=== PATIENT | male | born 2000 | race Caucasian/White ===

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

== ENCOUNTER 2022-04-02 07:10 | Emergency (ER) | payer OTHER, SELFPAY ==
--- NOTE | ~2022-04-02 | XR_ITS ---
EXAMINATION: XR ABDOMEN KUB CLINICAL INDICATION: Abdominal pain COMPARISON: 10/30/2021 TECHNIQUE: 2 views of the abdomen. FINDINGS: The bowel gas pattern is normal with no evidence of ileus or obstruction. No unusual soft tissue calcifications are noted. The bones are unremarkable. XR/XR KUB IMPRESSION: No evidence of urolithiasis.
[2022-04-02 07:21] VITALS: BP 119/71; PULSE 63; RESP 17; TEMP 36.6; O2SAT 100; BMI 22.8
--- NOTE | 2022-04-02 07:31 | PC.NURSE ---
pt is a/o x 4 no sob/jimena noted speaks in full sentences. lungs - cta. heart sound - regular. abd soft and non-tender, bs + x 4 quads. no edema noted. pt/girlfriend aware of plan of care.
[2022-04-02 07:53] LABS: MANUAL DIFF FLAG NO
[2022-04-02 07:59] LABS: Appearance Urine Cloudy; Color Urine Yellow; Glucose Urine UA Negative (Negative); Leukocyte Esterase Urine Negative (Negative); Nitrite Urine Negative (Negative); PH 6.5 (5.0-9.0); Specific Gravity - Urine 1.025 (1.005-1.025); Urine Blood Negative (Negative); Urine Ketones Negative (Negative); Urine Protein Negative (Neg-Trace)
--- NOTE | 2022-04-02 08:00 | ED_ITS ---
HPI - Abdominal Pain General Chief Complaint: Abdominal Pain Stated Complaint: Stomach Pain Time Seen by Provider: 04/02/22 08:00 Source: patient Mode of arrival: ambulatory Limitations: language barrier History of Present Illness HPI narrative: 21-year-old male who denies any significant past medical history presenting to the ED with his significant other at bedside they are both Persian speaking with complaints of abdominal pressure and fullness and need to defecate x 4-5 hours with associated nausea. He states he last vomited a few hours ago and has not had any PO intake since. He states a normal bowel pattern of 3 times and day, however; the last 2 days he states he has been having difficulties moving his bowels. He denies any changes in his diet. He denies any fevers, chills, dizziness, headaches, chest pain or shortness of breath, dyspnea on exertion, orthopnea, palpitations, paresthesias, hematuria, diarrhea, constipation, black or bloody stools, recent travels, or any other symptoms complaints or concerns at this time. He denies any weight gain or weight loss. ? MD elicited complaint: abdominal pain Pertinent past history: kidney stones Pain Consistency: constant Location: LUQ, RUQ, RLQ and LLQ Severity: mild Pain scale (0-10): 4 Quality: fullness and other (pressure) Radiation: none Migration to: no migration Exacerbating factors: nothing Relieving factors: bowel movement Associated symptoms: nausea Related Data Previous Rx's Medication Instructions Recorded loperamide 2 mg tablet 2 mg PO Q4H PRN loose stool #10 05/12/21 tabs ondansetron HCl 4 mg tablet 4 mg PO Q6H PRN nausea and 05/12/21 (Zofran) vomiting #10 tabs doxycycline hyclate 100 mg tablet 100 mg PO Q12H 10 days #20 tabs 10/28/21 cyclobenzaprine 10 mg tablet 10 mg PO Q8H PRN Muscle spasm #14 10/30/21 tabs ibuprofen 600 mg tablet 600 mg PO Q6H PRN pain #30 tabs 10/30/21 ketorolac 10 mg tablet 10 mg PO Q8H PRN pain #14 tabs 10/30/21 ondansetron 4 mg disintegrating 4 mg PO Q6-8H PRN nausea and 10/30/21 tablet vomiting #14 tabs oxycodone 5 mg tablet 5 mg PO Q6H PRN pain #14 tabs 10/30/21 tamsulosin 0.4 mg capsule (Flomax) 0.4 mg PO DAILY #30 caps 10/30/21 prednisone 20 mg tablet 20 mg PO DAILY 5 days #5 tabs 11/03/21 docusate sodium 100 mg capsule 100 mg PO DAILY #30 caps 04/02/22 (Colace) ondansetron 4 mg disintegrating 4 mg PO Q8H #7 tabs 04/02/22 tablet polyethylene glycol 3350 17 gram 17 g PO DAILY #30 ea 04/02/22 oral powder packet (Miralax) sennosides 8.6 mg tablet (senna) 8.6 mg PO DAILY #30 tabs 04/02/22 Allergies Allergy/AdvReac Type Severity Reaction Status Date / Time No Known Allergies Allergy Verified 03/22/22 15:53 Review of Systems Review of Systems Yes all other systems are reviewed and are negative Constitutional: Denies body ache(s), Denies chills, Denies fever(s), Denies poor appetite, Denies weight gain and Denies weight loss Eyes: Reports no additional eye complaints Reports system reviewed and no additional complaints, except as documented and Denies dizziness Cardiovascular: Reports no additional cardiovascular complaints, Denies chest pain, Denies Loss of Consciousness and Denies dyspnea Respiratory: Reports no additional respiratory complaints and Denies dyspnea Gastrointestinal: Reports no additional gastrointestinal complaints, Denies melena, Denies hematochezia, Reports tenesmus, Denies change in stool character, Reports constipation, Denies diarrhea, Reports nausea and Denies vomiting Genitourinary: Reports no additional male genitourinary complaints, Denies difficulty urinating, Denies dysuria and Denies flank pain Musculoskeletal: Reports no additional musculoskeletal complaints and Denies ba ck pain Skin/Breast: Reports system reviewed and no additional complaints, except as docu Reports system reviewed and no additional complaints, except as documented and Denies dizziness Psychiatric: Reports no additional psychiatric complaints and Denies change in appetite PMFSH Past Medical History Attestation statement: The following information was validated with the patient. Source: old records reviewed Social History Social History Alcohol intake: never Patient Tobacco Use Status: Never used Tobacco Smoked in Last 30 Days: No Use of substances other than those prescribed or required for medical reasons: No Advance Directives: No Advance Directives Information Provided: Yes Physical Exam ED Vital Signs: Vital Signs - 24 hr 04/02/22 07:21 04/02/22 10:30 Temperature 97.9 F 98.5 F Pulse Rate 63 92 Respiratory Rate 17 17 Blood Pressure 119/71 105/54 L Pulse Oximetry 100 100 Oxygen Delivery Method Room Air Room Air BMI result Body Mass Index 22.8 Const General: cooperative, no acute distress, alert and awake Nutritional Appearance: well nourished Orientation/consciousness: patient oriented x3 Limitations: language barrier HENMT Head: Yes normal to inspection and Yes atraumatic Ears: hearing grossly normal bilaterally and external ears normal General nose exam: Normal external nose present Face and sinus: Yes normal facial exam Mouth: Normal oral and palatal mucosa present Eyes General: appearance normal, both eyes and all related structures Alignment and Position: alignment normal Periorbital: periorbital findings normal Eyelids: Yes eyelids normal Conjunctivae: conjunctivae normal Sclerae: sclerae normal Pupils: Equal, round and reactive pupils present EOM: EOMs intact bilaterally Neck Neck: Yes normal visual inspection and Yes full ROM Chest Chest palpation & inspection: normal inspection of the chest Resp Effort & Inspection: normal respiratory effort and able to speak in complete se ntences Auscultation: clear to auscultation bilaterally Cardio Rate: regular rate Rhythm: regular rhythm GI Inspection: Yes normal to inspection Palpation (GI): Soft to palpation, not firm, Tenderness to palpation present (GI) in the LLQ, in the RLQ, in the LUQ and in the RUQ, no guarding and not rigid Percussion: Yes normal to percussion Auscultation: normal bowel sounds General: Yes no CVA tenderness Back/Spine/Pelvis Back: no CVA tenderness and No mass Cervical Spine: cervical ROM normal Thoracic/Lumbar Spine: thoracic and lumbar spine normal to inspection Skin General skin exam: no rashes or lesions noted Neuro General: patient oriented x3 and moves all extremities Cranial nerves: Yes Equal, round and reactive pupils present Cognition (Neuro): normal cognition Gait exam (Neuro): Normal gait present Motor exam (neuro): 5/5 motor strength present throughout Sensory Exam: Normal double simultaneous stimulation for sensation Extrem General: Yes normal to inspection, Yes full ROM and Yes capillary refill normal Psych Appearance: grossly normal Mental Status: mental status grossly normal Speech and movement: Normal speech and movement present Affect: normal affect Attitude: cooperative Thought process: Normal thought process present Thought content: Normal thought content present Insight: Good insight present (Psych) Judgement: Good judgement present (Psych) Medications Administered Discontinued Medications Generic Name Dose Route Start Last Admin Trade Name Lisa PRN Reason Stop Dose Admin Docusate Sodium 100 mg 04/02/22 08:14 04/02/22 08:56 Docusate Sodium 100 Mg Capsule PO 04/02/22 08:15 100 mg ONCE ONE Administration Ondansetron HCl 4 mg 04/02/22 09:14 04/02/22 09:20 Ondansetron Odt 4 Mg Tab.Rapdis TRANSLINGU 04/02/22 09:15 4 mg ONCE ONE Administration Polyethylene Glycol 17 gm 04/02/22 08:14 04/02/22 08:57 Polyethylene Glycol 3350 17 Gm Powd.Pack PO 04/02/22 08:15 17 gm ONCE ONE Administration Senna 15 ml 04/02/22 08:14 04/02/22 08:57 Senna [place] Extract Oral Syrup 15 Ml Syrup PO 04/02/22 08:15 15 ml ONCE ONE Administration MDM - Abdominal Pain MDM Narrative Medical decision making narrative: 21-year-old male who denies any significant past medical history presents to the ED with c/o of abdominal pressure, fullness and need to defecate over the last 4-5 hours with associated nausea. Lab work unremarkable. UA negative for infection. XR KUB negative for acute abdominal pathology. I explained my physical exam findings as well as all test results to the patient and family. I answered all questions asked by the patient and family. Patient received Ondansetron for nausea which he stated helped symptoms significantly. Low suspicion for renal calculi, appendicitis, cholecystitis. Educated to begin bowel regimen with OTC Miralax, Senna, and Colace as needed for symptoms of constipation. Educated to increase PO water/fluid intake and increase fiber in his diet. Educated to present to the emergency department immediately if symptoms were to worsen or if he were to develop any dizziness, shortness of breath, difficulty breathing, chest pain, blurry vision, loss of vision, nausea, vomiting, abdominal pain, fever, chills, back pain, or any other complaints. Patient and family verbalized agreement and understanding with this treatment plan. Pt cleared for discharge home. Recommended to follow up with PCP for furt her management. Lab Data Attestation: I reviewed the patient's lab results. Result diagrams: 04/02/22 07:49 04/02/22 07:49 Labs: Lab Results 04/02/22 04/02/22 04/02/22 Range/Units 07:49 07:49 07:49 WBC 6.1 (4.8-10.8) X10*3/uL RBC 5.19 (4.60-5.80) X10*6/uL Hgb 15.3 (14.0-18.0) g/dl Hct 44.8 (42.0-52.0) % MCV 86.3 (80.0-98.0) fL MCH 29.5 (27.0-33.0) pg MCHC 34.2 (31.0-36.0) g/dl RDW 12.6 (11.0-16.0) % Plt Count 230 (160-400) X10*3/uL MPV 9.3 L (9.4-12.4) fL Immature Gran % (Auto) 0.3 (0.0-0.4) % Neut % (Auto) 64.2 (45-73) % Lymph % (Auto) 23.3 (20-40) % [place] % (Auto) 10.4 (2-11) % Eos % (Auto) 1.5 (0-4) % Baso % (Auto) 0.3 (0-2) % Lymph # (Auto) 1.4 (1.2-4.9) X10*3/uL [place] # (Auto) 0.6 (0.1-1.2) X10*3/uL Eos # (Auto) 0.1 (0.0-0.4) X10*3/uL Baso # (Auto) 0.0 (0.0-0.2) X10*3/uL Abs Immat Gran (auto) 0.02 (0.00-0.03) X10*3/uL Absolute Neuts (auto) 3.9 (2.0-8.3) x10*3/uL Absolute Nucleated RBC 0.000 (0.0-0.012) X10*3/uL Nucleated RBC % (auto) 0.0 (0.0-0.2) /100WBC Sodium 140 (135-145) mmol/L Potassium 4.1 (3.3-5.1) mmol/L Chloride 104 (96-108) mmol/L Carbon Dioxide 27 (22-29) mmol/L Anion Gap 13 (12-20) BUN 11 (9-16) mg/dL Creatinine 0.88 (0.5-1.4) mg/dL Estim Creat Clear Calc 134.2 Estimated GFR > 60 Random Glucose 108 (60-115) mg/dL Calcium 9.5 (8.4-10.2) mg/dL Total Bilirubin 1.0 (0.0-1.0) mg/dL AST 23 (5-37) U/L ALT 19 (0-40) U/L Alkaline Phosphatase 109 (39-117) U/L Total Protein 6.9 (6.5-8.0) g/dL Lipase 14 (8-78) U/L Urine Color Yellow Urine Appearance Cloudy Urine pH 6.5 (5.0-9.0) Ur Specific [place] 1.025 (1.005-1.025) Urine Protein Negative (Neg-Trace) mg/dL Urine Glucose (UA) Negative (Negative) mg/dL Urine Ketones Negative (Negative) mg/dL Urine Blood Negative (Negative) Urine Nitrite Negative (Negative) Ur Leukocyte Esterase Negative (Negative) Imaging Data Abdominal x-ray: My impression: KUB negative for acute abdominal pathology Radiologist's impression: EXAMINATION: XR ABDOMEN KUB CLINICAL INDICATION: Abdominal pain? COMPARISON: 10/30/2021? TECHNIQUE: 2 views of the abdomen. FINDINGS: The bowel gas pattern is normal with no evidence of ileus or obstruction. No unusual soft tissue calcifications are noted. The bones are unremarkable. XR/XR KUB IMPRESSION: No evidence of urolithiasis. Dictated By: Chapo Giles MD Signed By: <Electronically signed by Chapo Giles MD in OV> 04/02/22941 DD/ 4 TD/TT:? Media Clerk: KRYSTYNA Discharge Plan Discharge Clinical Impression: Constipation, Abdominal pain Patient Disposition: Home, Self-Care Instructions: Constipation (ED), High Fiber Diet (ED), Abdominal Pain (ED) Prescriptions: New docusate sodium [Colace] 100 mg capsule 100 mg PO DAILY Qty: 30 0RF ondansetron 4 mg tablet,disintegrating 4 mg PO Q8H Qty: 7 0RF sennosides [senna] 8.6 mg tablet 8.6 mg PO DAILY Qty: 30 0RF polyethylene glycol 3350 [Miralax] 17 gram powder in packet 17 g PO DAILY Qty: 30 0RF No Action prednisone 20 mg tablet 20 mg PO DAILY 5 Days Qty: 5 0RF ondansetron HCl [Zofran] 4 mg tablet 4 mg PO Q6H PRN (Reason: nausea and vomiting) Qty: 10 0RF loperamide 2 mg tablet 2 mg PO Q4H PRN (Reason: loose stool) Qty: 10 0RF Rx Instructions: administer after each loose stool until symptoms controlled; do not exceed 8 mg per 24 hrs doxycycline hyclate 100 mg tablet 100 mg PO Q12H 10 Days Qty: 20 0RF ibuprofen 600 mg tablet 600 mg PO Q6H PRN (Reason: pain) Qty: 30 0RF ondansetron 4 mg tablet,disintegrating 4 mg PO Q6-8H PRN (Reason: nausea and vomiting) Qty: 14 0RF ketorolac 10 mg tablet 10 mg PO Q8H PRN (Reason: pain) Qty: 14 0RF oxycodone 5 mg tablet 5 mg PO Q6H PRN (Reason: pain) Qty: 14 0RF Rx Instructions: Partial Fill upon patient request. cyclobenzaprine 10 mg tablet 10 mg PO Q8H PRN (Reason: Muscle spasm) Qty: 14 0RF tamsulosin [Flomax] 0.4 mg capsule 0.4 mg PO DAILY Qty: 30 0RF Stand Alone Forms: Work/School Release Interventions: ED Discharge Assessment Last Done: 04/02/22 10:39 Discharge Date/Time: 04/02/22 10:39 Print Language: Persian
[2022-04-02 08:01] LABS: Basophils Percent Auto 0.3 % (0-2); Eosinophils Absolute Auto 0.1 X10*3/uL (0.0-0.4); Eosinophils Percent Auto 1.5 % (0-4); Hematocrit 44.8 % (42.0-52.0); Hemoglobin 15.3 g/dl (14.0-18.0); Imm Gran Abs Auto 0.02 X10*3/uL (0.00-0.03); Imm Gran Pct Auto 0.3 % (0.0-0.4); Lymphocytes Absolute Auto 1.4 X10*3/uL (1.2-4.9); Lymphocytes Percent Auto 23.3 % (20-40); Mean Corpuscular HGB Conc 34.2 g/dl (31.0-36.0); Mean Corpuscular Hemoglobin 29.5 pg (27.0-33.0); Mean Corpuscular Volume 86.3 fL (80.0-98.0); Mean Platelet Volume 9.3 fL (9.4-12.4); Monocytes Absolute Auto 0.6 X10*3/uL (0.1-1.2); Monocytes Percent Auto 10.4 % (2-11); Neutrophils Absolute Auto 3.9 x10*3/uL (2.0-8.3); Neutrophils Percent Auto 64.2 % (45-73); Platelet Count 230 X10*3/uL (160-400); Red Blood Count 5.19 X10*6/uL (4.60-5.80); Red Cell Distribution Width 12.6 % (11.0-16.0); White Blood Count 6.1 X10*3/uL (4.8-10.8)
[2022-04-02 08:20] LABS: Alanine Aminotransferase 19 U/L (0-40); Alkaline Phosphatase 109 U/L (39-117); Anion Gap 13 (12-20); Aspartate Amino Transferase 23 U/L (5-37); Blood Urea Nitrogen 11 mg/dL (9-16); Calcium 9.5 mg/dL (8.4-10.2); Carbon Dioxide 27 mmol/L (22-29); Chloride 104 mmol/L (96-108); Creatinine Clr Calc Pharmacy 134.2; Estimated Glomerular Filt Rate > 60; Glucose Random 108 mg/dL (60-115); Lipase 14 U/L (8-78); Potassium 4.1 mmol/L (3.3-5.1); Sodium 140 mmol/L (135-145); Total Protein 6.9 g/dL (6.5-8.0)
[2022-04-02] MEDS: Docusate Sodium 100 MG CAPSULE PO (08:56)
[2022-04-02] MEDS: polyethylene glycoL 3350 17 GM POWD.PACK PO (08:57)
[2022-04-02] MEDS: Ondansetron ODT 4 MG TAB.RAPDIS TRANSLINGU (09:20)
--- NOTE | 2022-04-02 09:20 | PC.NURSE ---
pt n/v x 2,med x 1 with zofran 4mg sl/po
--- NOTE | 2022-04-02 10:25 | PC.NURSE ---
pt tolerated po drink.
[2022-04-02 10:30] VITALS: BP 105/54; PULSE 92; RESP 17; TEMP 36.9; O2SAT 100
[2022-04-02 11:15] LABS: Albumin Level 4.5 g/dL (3.5-5.0)
== END 2022-04-02 10:39 | disposition home or self-care (01) ==
PROVIDERS: Emergency Provider Emergency Medicine Emergency Medical Services
DX: K59.00 Constipation, unspecified (principal); R10.12 Left upper quadrant pain; R10.11 Right upper quadrant pain; Z79.899 Other long term (current) drug therapy
CPT/HCPCS: 36415; 74018; 80053; 81003; 83690; 85025; 99283; 99284

== ENCOUNTER 2022-05-20 11:27 | Emergency (ER) | payer OTHER, SELFPAY ==
--- NOTE | ~2022-05-20 | CT_ITS ---
EXAMINATION: CT ABDOMEN AND PELVIS WITHOUT CONTRAST CLINICAL INFORMATION: Left flank pain COMPARISON: CT abdomen pelvis 10/30/2021 TECHNIQUE: Multidetector volumetric imaging was performed from the superior aspect of the liver through the pubic symphysis. Sagittal and coronal reformatted images were obtained on the technologist's workstation. This CT examination was performed using dose optimization techniques as appropriate, variously including the following: *Automated exposure control *Adjustment of mA and/or kV according to patient size (this includes techniques or standardized protocols for targeted exams where dose is matched to indication/reason for exam; i.e. extremities or head) *Use of iterative reconstruction technique DLP: 402 mGy-cm FINDINGS: LUNG BASES: There is a 7 mm calcified nodule left lower lobe. LIVER, GALLBLADDER, AND BILIARY TREE: The liver is normal in size, shape, and attenuation. No focal hepatic lesion or biliary ductal dilatation is present. The gallbladder is unremarkable with no evidence of radiopaque gallstones, gallbladder wall thickening, or obvious pericholecystic inflammatory changes. PANCREAS: Unremarkable. SPLEEN: Unremarkable. ADRENAL GLANDS: Unremarkable. KIDNEYS AND URETERS: The kidneys are normal in size, shape, and attenuation. No hydronephrosis, hydroureter, or calculi seen. No perinephric stranding. BLADDER: Unremarkable. GASTROINTESTINAL TRACT: There is moderate stool seen in colon without significant distention. The small bowel loops are normal caliber. Appendix is not visualized ABDOMINAL WALL: No significant hernia is appreciated. LYMPH NODES: Normal. VASCULAR: Unremarkable. PELVIC VISCERA: There is a 2.5 x 4.5 cm fluid collection adjacent to the right posterior bladder question very ureteral diverticulum. There is no free fluid. No adnexal mass. OSSEOUS STRUCTURES: No aggressive lytic or sclerotic process seen. CT/CT abdomen pelvis wo IV con IMPRESSION: 1. No acute intra-abdominal process seen. 2. Mild constipation. 3. No radiopaque urolith or hydroureteronephrosis. 4. Probable right [place] ureteral/flexure diverticulum. It is new since the last exam 10/30/2021 Fleischner guidelines were followed.
[2022-05-20 11:36] VITALS: BP 116/70; PULSE 68; RESP 18; TEMP 36.4; O2SAT 97; BMI 22.1
--- NOTE | 2022-05-20 11:42 | ED.GENADULT ---
HPI - General Adult General Source: patient <LORE Weinberg - Last Filed: 05/20/22 15:42> Mode of arrival: ambulatory <LORE Weinberg Last Filed: 05/20/22 15:42> Limitations: no limitations <LORE Weinberg Last Filed: 05/20/22 15:42> History of Present Illness HPI narrative: 21-year-old male is here today for complaining of left flank pain. Patient stated that the pain started couple weeks ago, however last night patient states the pain got worse. He was diagnosed with left kidney stone back in October of 2021. Was supposed to see urologist. Has not seen him since January. Patient denies nausea or vomiting. Reports that the pain does not radiate anywhere it is in his left flank. Patient denies having any urinary symptoms. No blood or burning. Patient denies any abdominal pain or discomfort. Denies any pelvic pain. Denies any other symptoms complaints or concerns at this time. <LORE Weinberg Last Filed: 05/20/22 15:42> MD complaint: Left flank pain history of kidney stones <LORE Weinberg - Last Filed: 05/20/22 15:42> Onset (ago): week(s) (Past few weeks worse since last night) <LORE Weinberg - Last Filed: 05/20/22 15:42> Related Data Home medications: Previous Rx's Medication Instructions Recorded loperamide 2 mg tablet 2 mg PO Q4H PRN loose stool #10 05/12/21 tabs ondansetron HCl 4 mg tablet 4 mg PO Q6H PRN nausea and 05/12/21 (Zofran) vomiting #10 tabs doxycycline hyclate 100 mg tablet 100 mg PO Q12H 10 days #20 tabs 10/28/21 cyclobenzaprine 10 mg tablet 10 mg PO Q8H PRN Muscle spasm #14 10/30/21 tabs ibuprofen 600 mg tablet 600 mg PO Q6H PRN pain #30 tabs 10/30/21 ketorolac 10 mg tablet 10 mg PO Q8H PRN pain #14 tabs 10/30/21 ondansetron 4 mg disintegrating 4 mg PO Q6-8H PRN nausea and 10/30/21 tablet vomiting #14 tabs oxycodone 5 mg tablet 5 mg PO Q6H PRN pain #14 tabs 10/30/21 tamsulosin 0.4 mg capsule (Flomax) 0.4 mg PO DAILY #30 caps 10/30/21 prednisone 20 mg tablet 20 mg PO DAILY 5 days #5 tabs 11/03/21 docusate sodium 100 mg capsule 100 mg PO DAILY #30 caps 04/02/22 (Colace) ondansetron 4 mg disintegrating 4 mg PO Q8H #7 tabs 04/02/22 tablet polyethylene glycol 3350 17 gram 17 g PO DAILY #30 ea 04/02/22 oral powder packet (Miralax) sennosides 8.6 mg tablet (senna) 8.6 mg PO DAILY #30 tabs 04/02/22 cyclobenzaprine 10 mg tablet 10 mg PO Q8H #14 tabs 05/20/22 docusate sodium 100 mg capsule 100 mg PO BID Constipation #14 caps 05/20/22 (Colace) ketorolac 10 mg tablet 10 mg PO Q8H #14 tabs 05/20/22 <[facility] - Last Filed: 05/24/22 20:57> Allergies/adverse reactions: Allergies Allergy/AdvReac Type Severity Reaction Status Date / Time No Known Allergies Allergy Verified 05/20/22 11:48 <Marielle Montaño [facility] - Last Filed: 05/24/22 20:57> Review of Systems Review of Systems: Constitutional : No Weight loss, No Fever, No Chills, No Night Sweats, No Fatigue, No Malaise ENT/Mouth : No Hearing loss, No Ear Pain, No Nasal Congestion, No Sinus Pain, No Hoarseness, No sore throat, No Rhinorrhea, No Swallowing Difficulty Eyes: No Eye Pain, No Swelling, No Redness, No Foreign Body, No Discharge, No Vision Changes Cardiovascular : No Chest Pain, No SOB, No Dyspnea on Exertion, No Orthopnea, No Edema, No Palpitations Respiratory : No Cough, No Sputum, No Wheezing, No Smoke Exposure, No Dyspnea Gastrointestinal : No Nausea, No Vomiting, No Diarrhea, No Constipation, No abdominal Pain, No Hematochezia, No Melena Genitourinary : no irregular bleeding, No Dysuria, No Urinary Frequency, No Hematuria, No Urinary Incontinence, No Urgency, + Flank Pain, No Urinary Flow Changes, No Hesitancy Musculoskeletal : No joint pain, No Myalgias, No Joint Swelling Skin : No Skin Lesions, No rash Neuro : No Weakness, No Numbness, No Paresthesias, No Loss of Consciousness, No Dizziness, No Headache Psych : No Anxiety/Panic, No Depression, No SI/HI/AH/VH, No Social Issues, Heme/Lymph: No Bruising, No Bleeding,No Lymphadenopathy Endocrine : No Polyuria, No Polydipsia, No Temperature Intolerance <LORE Weinberg - Last Filed: 05/20/22 15:42> Yes all other systems are reviewed and are negative <LORE Weinberg - Last Filed: 05/20/22 15:42> [facility] Past Medical History Attestation statement: The following information was validated with the patient. <LORE Weinberg - Last Filed: 05/20/22 15:42> Source: old records reviewed and nursing notes reviewed <LORE Weinberg - Last Filed: 05/20/22 15:42> Social History Social History: Social History Alcohol intake: never Patient Tobacco Use Status: Never used Tobacco <TRENT Cheek - Last Filed: 05/24/22 20:57> Physical Exam ED Vital Signs: Vital Signs - 24 hr 05/20/22 11:36 Temperature 97.6 F Pulse Rate 68 Respiratory Rate 18 Blood Pressure 116/70 Pulse Oximetry 97 Oxygen Delivery Method Room Air BMI result Body Mass Index 22.1 <TRENT Cheek - Last Filed: 05/24/22 20:57> Vital Signs - 24 hr 05/20/22 11:36 Temperature 97.6 F Pulse Rate 68 Respiratory Rate 18 Blood Pressure 116/70 Pulse Oximetry 97 Oxygen Delivery Method Room Air BMI result Body Mass Index 22.1 vital signs have been reviewed as normal and appeared to be correct. Blood pressure normal. Heart rate normal. Respiration rate normal. Temperature normal. Oxygen saturation normal. <LORE Weinberg - Last Filed: 05/20/22 15:42> Appearance: Alert. Oriented X3. No acute distress. Head: Normal external exam. Normocephalic. Atraumatic. Eyes: PERRLA. EOMI. Conjunctiva and sclera normal. Eyelids normal. ENT: Pharynx normal. Uvula midline. Moist mucous membranes. No lesions/ulcerations or masses noted on the tongue. Normal voice. No trismus noted. No drooling noted. No muffled voice noted. Neck: Normal inspection. Neck supple. FROM. No adenopathy. Thyroid Normal. No tracheal deviation noted. No crepitus is noted. No meningeal signs. No neck mass noted. No signs of trauma noted. CVS: Normal heart rate and rhythm. Heart sound normal. Pulses normal throughout. No murmurs/rales/gallops. Respiratory: No respiratory distress. Painless inspiration. Breath sounds normal. No wheezes/rales/rhonchi noted. Chest nontender. No crepitus is noted. No signs of trauma noted. No accessory muscle usage noted or decreased air movement noted. No signs of trauma. Abdomen: Soft and nontender. Bowel sounds normal in all 4 quadrants. No distention noted. No organomegaly noted. No visible injury noted. Back: + left CVA tenderness. Full range of motion noted. Nontender. No signs of trauma. Patient neuro intact bilaterally and distally on all 4 extremities. Patient's reflexes intact bilaterally and distally on all 4 extremities. No rashes/lesion/induration/fluctuance or signs of infection noted. Skin: Skin warm and dry. Normal skin color. Normal skin turgor. No rashes/lesions/lacerations noted. Extremities: Extremities exhibit normal range of motion and nontender. Neuro: Oriented X 3. No motor deficit. No sensory deficit. Reflexes normal. Normal steady gait. No focal neuro deficits noted. CN's II-XII intact bilaterally? Vascular: + radial pulses. Normal cap refill. No cyanosis noted to upper extremity nails <LORE Weinberg - Last Filed: 05/20/22 15:42> Course Course Course Narrative: 05/20/2022 11:36 RME: 21-year-old male is here today for complaining of left flank pain. Patient stated that the pain started couple weeks ago, however last night patient states the pain got worse. He was diagnosed with left kidney stone back in October of 2021. Was supposed to see urologist. Has not seen him since January. Patient denies nausea or vomiting. Reports that the pain does not radiate anywhere it is in his left flank. Patient denies having any urinary symptoms. No blood or burning. Patient denies any abdominal pain or discomfort. Denies any pelvic pain. Vital signs stable patient will be sent to waiting room. Hemodynamically stable pain under control at this time. Will do BMP, CBC, urinalysis, CT scan. <TRENT Cheek - Last Filed: 05/24/22 20:57> Reevaluation(s) Reevaluation #1: 21-year-old male is here today for complaining of left flank pain. Patient stated that the pain started couple weeks ago, however last night patient states the pain got worse. He was diagnosed with left kidney stone back in October of 2021. On exam patient has left CVA tenderness/left flank pain. Otherwise no other point tenderness is noted. Differential diagnosis includes: Kidney stones. Abdominal exam without peritoneal signs. No evidence of acute abdomen at this time. Well appearing. Low suspicion for acute hepatobiliary disease (includng acute cholecystitis), acute pancreatitis, PUD (including perforation), acute infectious processes (pneumonia, hepatitis, pyelonephritis), acute appendicitis, vascular catastrophe, bowel obstruction or viscus perforation. Presentation not consistent with other acute, emergent causes of abdominal pain at this time. Labs were obtained while the patient was in triage and all labs are within normal limits. CT scan abdomen pelvis without IV contrast revealed mild constipation with right periurethral flexure diverticulum new since last exam otherwise no other acute processes. Therefore if UA is within normal limits patient will be discharged with symptomatic treatment for muscular skeletal pain and instructions to follow-up with Urology. Patient understands agrees with this plan. <LORE Weinberg - Last Filed: 05/20/22 15:42> Time: 15:30 <LORE Weinberg - Last Filed: 05/20/22 15:42> Medical Decision Making Lab Data MDM Lab Attestation statement: I reviewed the patient's lab results. <LORE Weinberg - Last Filed: 05/20/22 15:42> Result Diagrams: 05/20/22 11:53 05/20/22 11:53 <TRENT Cheek - Last Filed: 05/24/22 20:57> Labs: Lab Results 05/20/22 05/20/22 05/20/22 Range/Units 11:53 11:53 15:00 WBC 7.1 (4.8-10.8) X10*3/uL RBC 5.44 (4.60-5.80) X10*6/uL Hgb 16.2 (14.0-18.0) g/dl Hct 47.1 (42.0-52.0) % MCV 86.6 (80.0-98.0) fL MCH 29.8 (27.0-33.0) pg MCHC 34.4 (31.0-36.0) g/dl RDW 12.6 (11.0-16.0) % Plt Count 245 (160-400) X10*3/uL MPV 9.4 (9.4-12.4) fL Immature Gran % (Auto) 0.1 (0.0-0.4) % Neut % (Auto) 62.5 (45-73) % Lymph % (Auto) 27.6 (20-40) % [place] % (Auto) 7.7 (2-11) % Eos % (Auto) 1.7 (0-4) % Baso % (Auto) 0.4 (0-2) % Lymph # (Auto) 2.0 (1.2-4.9) X10*3/uL [place] # (Auto) 0.6 (0.1-1.2) X10*3/uL Eos # (Auto) 0.1 (0.0-0.4) X10*3/uL Baso # (Auto) 0.0 (0.0-0.2) X10*3/uL Abs Immat Gran (auto) 0.01 (0.00-0.03) X10*3/uL Absolute Neuts (auto) 4.4 (2.0-8.3) x10*3/uL Absolute Nucleated RBC 0.000 (0.0-0.012) X10*3/uL Nucleated RBC % (auto) 0.0 (0.0-0.2) /100WBC Sodium 139 (135-145) mmol/L Potassium 4.4 (3.3-5.1) mmol/L Chloride 105 (96-108) mmol/L Carbon Dioxide 25 (22-29) mmol/L Anion Gap 13 (12-20) BUN 13 (9-16) mg/dL Creatinine 0.87 (0.5-1.4) mg/dL Estim Creat Clear Calc 134.9 Estimated GFR > 60 Random Glucose 100 (60-115) mg/dL Calcium 9.7 (8.4-10.2) mg/dL Magnesium 1.8 (1.6-2.6) mg/dL Total Bilirubin 0.9 (0.0-1.0) mg/dL Direct Bilirubin 0.3 (0.0-0.5) mg/dL AST 21 (5-37) U/L ALT 16 (0-40) U/L Alkaline Phosphatase 96 (39-117) U/L Total Protein 7.2 (6.5-8.0) g/dL Albumin 4.6 (3.5-5.0) g/dL Lipase 17 (8-78) U/L Urine Color Yellow Urine Appearance Turbid Urine pH 6.5 (5.0-9.0) Ur Specific [place] 1.025 (1.005-1.025) Urine Protein Negative (Neg-Trace) mg/dL Urine Glucose (UA) Negative (Negative) mg/dL Urine Ketones Negative (Negative) mg/dL Urine Blood Negative (Negative) Urine Nitrite Negative (Negative) Ur Leukocyte Esterase Negative (Negative) Chlam trachomat DNA PCR (Not Detect.) N.gonorrhoeae DNA (PCR) (Not Detect.) 05/20/22 Range/Units 15:00 WBC (4.8-10.8) X10*3/uL RBC (4.60-5.80) X10*6/uL Hgb (14.0-18.0) g/dl Hct (42.0-52.0) % MCV (80.0-98.0) fL MCH (27.0-33.0) pg MCHC (31.0-36.0) g/dl RDW (11.0-16.0) % Plt Count (160-400) X10*3/uL MPV (9.4-12.4) fL Immature Gran % (Auto) (0.0-0.4) % Neut % (Auto) (45-73) % Lymph % (Auto) (20-40) % [place] % (Auto) (2-11) % Eos % (Auto) (0-4) % Baso % (Auto) (0-2) % Lymph # (Auto) (1.2-4.9) X10*3/uL [place] # (Auto) (0.1-1.2) X10*3/uL Eos # (Auto) (0.0-0.4) X10*3/uL Baso # (Auto) (0.0-0.2) X10*3/uL Abs Immat Gran (auto) (0.00-0.03) X10*3/uL Absolute Neuts (auto) (2.0-8.3) x10*3/uL Absolute Nucleated RBC (0.0-0.012) X10*3/uL Nucleated RBC % (auto) (0.0-0.2) /100WBC Sodium (135-145) mmol/L Potassium (3.3-5.1) mmol/L Chloride (96-108) mmol/L Carbon Dioxide (22-29) mmol/L Anion Gap (12-20) BUN (9-16) mg/dL Creatinine (0.5-1.4) mg/dL Estim Creat Clear Calc Estimated GFR Random Glucose (60-115) mg/dL Calcium (8.4-10.2) mg/dL Magnesium (1.6-2.6) mg/dL Total Bilirubin (0.0-1.0) mg/dL Direct Bilirubin (0.0-0.5) mg/dL AST (5-37) U/L ALT (0-40) U/L Alkaline Phosphatase (39-117) U/L Total Protein (6.5-8.0) g/dL Albumin (3.5-5.0) g/dL Lipase (8-78) U/L Urine Color Urine Appearance Urine pH (5.0-9.0) Ur Specific [place] (1.005-1.025) Urine Protein (Neg-Trace) mg/dL Urine Glucose (UA) (Negative) mg/dL Urine Ketones (Negative) mg/dL Urine Blood (Negative) Urine Nitrite (Negative) Ur Leukocyte Esterase (Negative) Chlam trachomat DNA PCR NOT DETECTED (Not Detect.) N.gonorrhoeae DNA (PCR) NOT DETECTED (Not Detect.) <Marielle Montaño, [employer] - Last Filed: 05/24/22 20:57> Lab Results 05/20/22 05/20/22 05/20/22 Range/Units 11:53 11:53 15:00 WBC 7.1 (4.8-10.8) X10*3/uL RBC 5.44 (4.60-5.80) X10*6/uL Hgb 16.2 (14.0-18.0) g/dl Hct 47.1 (42.0-52.0) % MCV 86.6 (80.0-98.0) fL MCH 29.8 (27.0-33.0) pg MCHC 34.4 (31.0-36.0) g/dl RDW 12.6 (11.0-16.0) % Plt Count 245 (160-400) X10*3/uL MPV 9.4 (9.4-12.4) fL Immature Gran % (Auto) 0.1 (0.0-0.4) % Neut % (Auto) 62.5 (45-73) % Lymph % (Auto) 27.6 (20-40) % [place] % (Auto) 7.7 (2-11) % Eos % (Auto) 1.7 (0-4) % Baso % (Auto) 0.4 (0-2) % Lymph # (Auto) 2.0 (1.2-4.9) X10*3/uL [place] # (Auto) 0.6 (0.1-1.2) X10*3/uL Eos # (Auto) 0.1 (0.0-0.4) X10*3/uL Baso # (Auto) 0.0 (0.0-0.2) X10*3/uL Abs Immat Gran (auto) 0.01 (0.00-0.03) X10*3/uL Absolute Neuts (auto) 4.4 (2.0-8.3) x10*3/uL Absolute Nucleated RBC 0.000 (0.0-0.012) X10*3/uL Nucleated RBC % (auto) 0.0 (0.0-0.2) /100WBC Sodium 139 (135-145) mmol/L Potassium 4.4 (3.3-5.1) mmol/L Chloride 105 (96-108) mmol/L Carbon Dioxide 25 (22-29) mmol/L Anion Gap 13 (12-20) BUN 13 (9-16) mg/dL Creatinine 0.87 (0.5-1.4) mg/dL Estim Creat Clear Calc 134.9 Estimated GFR > 60 Random Glucose 100 (60-115) mg/dL Calcium 9.7 (8.4-10.2) mg/dL Magnesium 1.8 (1.6-2.6) mg/dL Total Bilirubin 0.9 (0.0-1.0) mg/dL Direct Bilirubin 0.3 (0.0-0.5) mg/dL AST 21 (5-37) U/L ALT 16 (0-40) U/L Alkaline Phosphatase 96 (39-117) U/L Total Protein 7.2 (6.5-8.0) g/dL Albumin 4.6 (3.5-5.0) g/dL Lipase 17 (8-78) U/L Urine Color Yellow Urine Appearance Turbid Urine pH 6.5 (5.0-9.0) Ur Specific [place] 1.025 (1.005-1.025) Urine Protein Negative (Neg-Trace) mg/dL Urine Glucose (UA) Negative (Negative) mg/dL Urine Ketones Negative (Negative) mg/dL Urine Blood Negative (Negative) Urine Nitrite Negative (Negative) Ur Leukocyte Esterase Negative (Negative) Chlam trachomat DNA PCR (Not Detect.) N.gonorrhoeae DNA (PCR) (Not Detect.) 05/20/22 Range/Units 15:00 WBC (4.8-10.8) X10*3/uL RBC (4.60-5.80) X10*6/uL Hgb (14.0-18.0) g/dl Hct (42.0-52.0) % MCV (80.0-98.0) fL MCH (27.0-33.0) pg MCHC (31.0-36.0) g/dl RDW (11.0-16.0) % Plt Count (160-400) X10*3/uL MPV (9.4-12.4) fL Immature Gran % (Auto) (0.0-0.4) % Neut % (Auto) (45-73) % Lymph % (Auto) (20-40) % [place] % (Auto) (2-11) % Eos % (Auto) (0-4) % Baso % (Auto) (0-2) % Lymph # (Auto) (1.2-4.9) X10*3/uL [place] # (Auto) (0.1-1.2) X10*3/uL Eos # (Auto) (0.0-0.4) X10*3/uL Baso # (Auto) (0.0-0.2) X10*3/uL Abs Immat Gran (auto) (0.00-0.03) X10*3/uL Absolute Neuts (auto) (2.0-8.3) x10*3/uL Absolute Nucleated RBC (0.0-0.012) X10*3/uL Nucleated RBC % (auto) (0.0-0.2) /100WBC Sodium (135-145) mmol/L Potassium (3.3-5.1) mmol/L Chloride (96-108) mmol/L Carbon Dioxide (22-29) mmol/L Anion Gap (12-20) BUN (9-16) mg/dL Creatinine (0.5-1.4) mg/dL Estim Creat Clear Calc Estimated GFR Random Glucose (60-115) mg/dL Calcium (8.4-10.2) mg/dL Magnesium (1.6-2.6) mg/dL Total Bilirubin (0.0-1.0) mg/dL Direct Bilirubin (0.0-0.5) mg/dL AST (5-37) U/L ALT (0-40) U/L Alkaline Phosphatase (39-117) U/L Total Protein (6.5-8.0) g/dL Albumin (3.5-5.0) g/dL Lipase (8-78) U/L Urine Color Urine Appearance Urine pH (5.0-9.0) Ur Specific [place] (1.005-1.025) Urine Protein (Neg-Trace) mg/dL Urine Glucose (UA) (Negative) mg/dL Urine Ketones (Negative) mg/dL Urine Blood (Negative) Urine Nitrite (Negative) Ur Leukocyte Esterase (Negative) Chlam trachomat DNA PCR NOT DETECTED (Not Detect.) N.gonorrhoeae DNA (PCR) NOT DETECTED (Not Detect.) <LORE Weinberg - Last Filed: 05/20/22 15:42> Independent Interpretation Interpretation: CT scan abdomen pelvis without IV contrast FINDINGS: LUNG BASES: There is a 7 mm calcified nodule left lower lobe.? LIVER, GALLBLADDER, AND BILIARY TREE: The liver is normal in size, shape, and attenuation. No focal hepatic lesion or biliary ductal dilatation is present. The gallbladder is unremarkable with no evidence of radiopaque gallstones, gallbladder wall thickening, or obvious pericholecystic inflammatory changes.? PANCREAS: Unremarkable.? SPLEEN: Unremarkable.? ADRENAL GLANDS: Unremarkable.? KIDNEYS AND URETERS: The kidneys are normal in size, shape, and attenuation. No hydronephrosis, hydroureter, or calculi seen. No perinephric stranding. ? BLADDER: Unremarkable.? GASTROINTESTINAL TRACT: There is moderate stool seen in colon without significant distention. The small bowel loops are normal caliber. Appendix is not visualized ABDOMINAL WALL: No significant hernia is appreciated.? LYMPH NODES: Normal. VASCULAR: Unremarkable. PELVIC VISCERA: There is a 2.5 x 4.5 cm fluid collection adjacent to the right posterior bladder question very ureteral diverticulum. There is no free fluid. No adnexal mass. OSSEOUS STRUCTURES: No aggressive lytic or sclerotic process seen.? CT/CT abdomen pelvis wo IV con IMPRESSION: 1.? No acute intra-abdominal process seen. 2.? Mild constipation. 3.? No radiopaque urolith or hydroureteronephrosis. 4.? Probable right [place] ureteral/flexure diverticulum. It is new since the last exam 10/30/2021 ? Fleischner guidelines were followed. <LORE Weinberg - Last Filed: 05/20/22 15:42> Radiology Impression Discussion of test interpretation with radiology: I have reviewed the radiologist's reading. <LORE Weinberg - Last Filed: 05/20/22 15:42> External Record Review External record reviewed: Inpatient record, Office record, Outpatient record, Prior outpatient labs, Prior outpatient radiology, Primary care record and Outside ED record <LORE Weinberg - Last Filed: 05/20/22 15:42> Discharge Plan Discharge Clinical Impression: Constipation, Urethral diverticulum <Marielle Hartman [facility] - Last Filed: 05/24/22 20:57> Patient Disposition: Home, Self-Care <Marielle Hartman [facility] - Last Filed: 05/24/22 20:57> Instructions: Constipation (ED) <THU Cheek - Last Filed: 05/24/22 20:57> Prescriptions: New ketorolac 10 mg tablet 10 mg PO Q8H Qty: 14 0RF Rx Instructions: Patient tolerated IM dose in the ER cyclobenzaprine 10 mg tablet 10 mg PO Q8H Qty: 14 0RF docusate sodium [Colace] 100 mg capsule 100 mg PO BID Qty: 14 0RF No Action prednisone 20 mg tablet 20 mg PO DAILY 5 Days Qty: 5 0RF ondansetron HCl [Zofran] 4 mg tablet 4 mg PO Q6H PRN (Reason: nausea and vomiting) Qty: 10 0RF loperamide 2 mg tablet 2 mg PO Q4H PRN (Reason: loose stool) Qty: 10 0RF Rx Instructions: administer after each loose stool until symptoms controlled; do not exceed 8 mg per 24 hrs doxycycline hyclate 100 mg tablet 100 mg PO Q12H 10 Days Qty: 20 0RF ibuprofen 600 mg tablet 600 mg PO Q6H PRN (Reason: pain) Qty: 30 0RF ondansetron 4 mg tablet,disintegrating 4 mg PO Q6-8H PRN (Reason: nausea and vomiting) Qty: 14 0RF ketorolac 10 mg tablet 10 mg PO Q8H PRN (Reason: pain) Qty: 14 0RF oxycodone 5 mg tablet 5 mg PO Q6H PRN (Reason: pain) Qty: 14 0RF Rx Instructions: Partial Fill upon patient request. cyclobenzaprine 10 mg tablet 10 mg PO Q8H PRN (Reason: Muscle spasm) Qty: 14 0RF tamsulosin [Flomax] 0.4 mg capsule 0.4 mg PO DAILY Qty: 30 0RF docusate sodium [Colace] 100 mg capsule 100 mg PO DAILY Qty: 30 0RF ondansetron 4 mg tablet,disintegrating 4 mg PO Q8H Qty: 7 0RF sennosides [senna] 8.6 mg tablet 8.6 mg PO DAILY Qty: 30 0RF polyethylene glycol 3350 [Miralax] 17 gram powder in packet 17 g PO DAILY Qty: 30 0RF <TRENT Cheek - Last Filed: 05/24/22 20:57> Referrals: [facility] [Primary Care Provider] - 2 days <TRENT Cheek - Last Filed: 05/24/22 20:57> Stand Alone Forms: Work/School Release <TRENT Cheek - Last Filed: 05/24/22 20:57> Interventions: ED Discharge Assessment Last Done: 05/20/22 15:47 <TRENT Cheek - Last Filed: 05/24/22 20:57> Discharge Date/Time: 05/20/22 15:48 <TRENT Cheek - Last Filed: 05/24/22 20:57> Print Language: Zambian <TRENT Cheek - Last Filed: 05/24/22 20:57>
[2022-05-20 12:00] LABS: MANUAL DIFF FLAG NO
[2022-05-20 12:03] LABS: Basophils Percent Auto 0.4 % (0-2); Eosinophils Absolute Auto 0.1 X10*3/uL (0.0-0.4); Eosinophils Percent Auto 1.7 % (0-4); Hematocrit 47.1 % (42.0-52.0); Hemoglobin 16.2 g/dl (14.0-18.0); Imm Gran Abs Auto 0.01 X10*3/uL (0.00-0.03); Imm Gran Pct Auto 0.1 % (0.0-0.4); Lymphocytes Percent Auto 27.6 % (20-40); Mean Corpuscular HGB Conc 34.4 g/dl (31.0-36.0); Mean Corpuscular Hemoglobin 29.8 pg (27.0-33.0); Mean Corpuscular Volume 86.6 fL (80.0-98.0); Mean Platelet Volume 9.4 fL (9.4-12.4); Monocytes Absolute Auto 0.6 X10*3/uL (0.1-1.2); Monocytes Percent Auto 7.7 % (2-11); Neutrophils Absolute Auto 4.4 x10*3/uL (2.0-8.3); Neutrophils Percent Auto 62.5 % (45-73); Platelet Count 245 X10*3/uL (160-400); Red Blood Count 5.44 X10*6/uL (4.60-5.80); Red Cell Distribution Width 12.6 % (11.0-16.0); White Blood Count 7.1 X10*3/uL (4.8-10.8)
[2022-05-20 12:17] LABS: Anion Gap 13 (12-20); Blood Urea Nitrogen 13 mg/dL (9-16); Calcium 9.7 mg/dL (8.4-10.2); Carbon Dioxide 25 mmol/L (22-29); Chloride 105 mmol/L (96-108); Creatinine Clr Calc Pharmacy 134.9; Estimated Glomerular Filt Rate > 60; Glucose Random 100 mg/dL (60-115); Potassium 4.4 mmol/L (3.3-5.1); Sodium 139 mmol/L (135-145)
[2022-05-20 14:40] LABS: Alanine Aminotransferase 16 U/L (0-40); Albumin Level 4.6 g/dL (3.5-5.0); Alkaline Phosphatase 96 U/L (39-117); Aspartate Amino Transferase 21 U/L (5-37); Bilirubin Direct 0.3 mg/dL (0.0-0.5); Bilirubin Total 0.9 mg/dL (0.0-1.0); Lipase 17 U/L (8-78); Magnesium 1.8 mg/dL (1.6-2.6); Total Protein 7.2 g/dL (6.5-8.0)
[2022-05-20 15:26] LABS: Appearance Urine Turbid; Color Urine Yellow; Glucose Urine UA Negative (Negative); Leukocyte Esterase Urine Negative (Negative); Nitrite Urine Negative (Negative); PH 6.5 (5.0-9.0); Specific Gravity - Urine 1.025 (1.005-1.025); Urine Blood Negative (Negative); Urine Ketones Negative (Negative); Urine Protein Negative (Neg-Trace)
[2022-05-21 11:05] LABS: CT PCR NOT DETECTED (Not Detect.); NG PCR NOT DETECTED (Not Detect.)
== END 2022-05-20 15:48 | disposition home or self-care (01) ==
PROVIDERS: Nurse Practitioner Family; Physician Assistant Medical; Emergency Provider Emergency Medicine Emergency Medical Services
DX: N36.1 Urethral diverticulum (principal); K59.00 Constipation, unspecified; R10.9 Unspecified abdominal pain; Z79.899 Other long term (current) drug therapy; Z87.442 Personal history of urinary calculi
CPT/HCPCS: 0353U; 36415; 74176; 80048; 80076; 81003; 83690; 83735; 85025; 99282; 99284

== ENCOUNTER → 2022-08-20 13:29 | Outpatient (BNVA) | payer OTHER, SELFPAY | PROVIDERS: PCP Internal Medicine; Visit Provider Urology | DX: N20.0 Calculus of kidney (principal); N32.3 Diverticulum of bladder | CPT/HCPCS: 99212 ==

== ENCOUNTER → 2022-09-23 09:00 | Outpatient (BNVA) | payer OTHER, SELFPAY | PROVIDERS: PCP Internal Medicine; Visit Provider Urology | DX: N20.0 Calculus of kidney (principal); N32.3 Diverticulum of bladder | CPT/HCPCS: 52000; 99212 ==

== ENCOUNTER 2022-11-08 11:24 | Day surgery (SDC) | payer OTHER, SELFPAY ==
--- NOTE | ~2022-11-08 | FL_ITS ---
EXAMINATION: XR FLUOROSCOPY WITH IMAGES CLINICAL INFORMATION: Retro right side. COMPARISON: None available. TECHNIQUE: Fluoroscopy Supervised By: Dr. Marcus Castro. Fluoroscopy Time: 30.9 seconds. Cumulative Dose: 5.94 mGy. DAP: Gycm2. Images: 2. FINDINGS: Image demonstrates a catheter in the right ureter and right renal pelvis. There is opacification of the right renal collecting system which is normal-appearing. FL/FL guidance in OR IMPRESSION: Fluoroscopy guidance for right retrograde exam.
[2022-11-08 11:47] VITALS: BP 123/78; PULSE 78; RESP 20; TEMP 37.1; O2SAT 98; BMI 23.3
[2022-11-08] MEDS: Lactated Ringers 1,000 ML 50 ML IVCONT (12:13)
--- NOTE | 2022-11-08 13:54 | HO.ANESPROP2 ---
HPI - Anesthesia Eval Consult details Narrative: for cysto PMFSH Active Problems Active Problems: All Active Problems (Updated 11/08/22 @ 12:06 by Narda Mayer RN) Nephrolithiasis (Acute) Bladder diverticulum (Acute) Ureteral diverticulum (Acute) Past Medical History Medical History Hx of earache Hx of renal calculi Family History Family history of problems with anesthesia: No Surgical History Surgical History History of placement of ear tubes Hx of tonsillectomy Hx of wisdom tooth extraction History of Problems with Anesthesia: No Social History Social History Alcohol intake: never Patient Tobacco Use Status: Never used Tobacco Are you DNR?: No Advance Directives: No Advance Directives Information Provided: Yes Nutrition Risks: No Nutritional Risk Meds Allergies Allergy/AdvReac Type Severity Reaction Status Date / Time No Known Allergies Allergy Verified 09/23/22 09:08 Active Medications: Current Medications Lactated Ringer's (Lr) 1,000 mls @ 50 mls/hr IVCONT .Q20H LEIDY Last Admin: 11/08/22 12:13 Dose: 50 mls/hr Home Medications Medication Instructions Recorded Confirmed Last Taken Type No Known Home Meds 11/08/22 11/08/22 Unknown History Exam Exam Date and Time: November 08, 2022 1354 Height,Weight and Vital Signs: Height 5 ft 9 in Weight 71.668 kg Last Vital Signs Temp 98.8 F 11/08/22 11:47 Pulse 78 11/08/22 11:47 Resp 20 11/08/22 11:47 BP 123/78 11/08/22 11:47 Pulse Ox 98 11/08/22 11:47 O2 Del Method Room Air 11/08/22 11:47 Airway Mallampati Class: II TM Dist: >3cm Neck ROM: Full Heart: rrr Lungs: cta Assessment and Plan Assessment Anesthesia Assessment: Anesthesia Plan Discussed Final Anesthetic Review Family History of Problems with Anesthesia: No History of Problems with Anesthesia: No NPO: Yes ASA Class: II Final Preanesthetic Review: No Changes in Pt Med Stat, Meds/Allgs Chart Reviewed, Consent Obtained/Reviewed and Anes Risks/Benef Reviewed Patient Risk: Low Procedure Risk: Low Anesthetic Plan Anesthetic Plan: GA Disposition: Standard PACU
--- NOTE | 2022-11-08 14:37 | PC.NURSE ---
report given to areli mac rn at this time.
--- NOTE | 2022-11-08 14:46 | MHC.SHP ---
Pre-Procedural Eval Section A Date of Service: 11/08/22 The patient is an INPATIENT: No Changes since office visit: No Cold of Flu in the past 2 weeks, No New Medical Problems, No Changes in Medication and No Patient answered all questions The History & Physical has been completed within 30 days and I have reviewed it.: Yes Section B Chief Complaint: Other specified disorders of kidney and ureter Details of Present Illness: question of ureter diverticulum plan for diagnostic cystoscopy with right retrograde possible ureteroscopy Relevant Social History: None Present Medications: see Short Stay Collaborative assessment Medical History: No relevant PMH History of Previous Operations: No relevant previous surgery Allergies: Allergies Allergy/AdvReac Type Severity Reaction Status Date / Time No Known Allergies Allergy Verified 09/23/22 09:08 Review of Systems Sugical H&P ROS: Negative: Constitution, Cardiovascular, Respiratory, Neurological, Psychiatric, Hem-Onc, Allergic/Immunologic, Gastrointestinal, Genitourinary, Musculoskeletal, Integumentary, Endocrine and Eyes/Ears/Nose/Throat Exam Surgical H&P Exam: Normal: HEENT, Normal: Heart, Normal: Lungs, Normal: Extremities, Normal: Abdomen, Normal: Skin and Normal: Neurological Plan Diagnosis/Plan: Unchanged ( cystoscopy, right retrograde, ureteroscopy) I have reviewed the history and physical and performed a pertinent physical examination on my patient. No changes have occurred unless specified. Time Spent With Patient Time: Total time managing care of this patient today ____ minutes.
--- NOTE | 2022-11-08 15:51 | W.PM.OPN ---
Operative Note Operative Note Date of Service: 11/08/22 Narrative: PreOperative Diagnosis: question of ureteric diverticulum Post Operative Diagnosis: cystitis Procedure: cystoscopy, right retrograde Surgeon: Dr Marcus Castro Anesthesia: protocol Indications for procedure: imaging with question of ureteric diverticulum Procedure: After informed consent was verified the patient was brought to the operating room and placed in a supine position. Anesthesia was administered per protocol. The patient was prepped and draped in a sterile fashion. Safety pause time-out was performed. Antibiotics being given. cystoscopy performed No abnormality noted of anterior posterior urethra Bladder with normal position ureteric orifice Bladder mucosa injected consistent with chronic cystitis Retrograde exam performed on right side. Debris presents during excretory phase. Consistent with mucus. Catheterization of right ureteric orifice performed. Ureteric catheter placed up to right renal pelvis. Right renal pelvis washed out. No further mucus seen. Procedure completed. Patient tolerated procedure well. Extubated in operating room and transferred in stable condition to recovery area Pathology: Drains:
[2022-11-08 16:11] VITALS: BP 105/63; PULSE 60; RESP 15; TEMP 36.2; O2SAT 100
[2022-11-08 16:16] VITALS: BP 103/65; PULSE 67; RESP 20; O2SAT 98
[2022-11-08 16:21] VITALS: BP 113/65; PULSE 63; RESP 20; O2SAT 98
[2022-11-08 16:26] VITALS: BP 104/67; PULSE 72; RESP 20; TEMP 36.1; O2SAT 98
[2022-11-08 16:41] VITALS: BP 106/68; PULSE 61; RESP 20; O2SAT 99
[2022-11-08] MEDS: Phenazopyridine HCL 100 MG TABLET PO (16:43)
== END 2022-11-08 16:59 | disposition home or self-care (01) ==
PROVIDERS: PCP Internal Medicine; Visit Provider Urology
PROC: (CPT 52005; principal; 2022-11-08 12:50)
DX: N30.90 Cystitis, unspecified without hematuria (principal); N28.89 Other specified disorders of kidney and ureter; N32.3 Diverticulum of bladder; Z87.442 Personal history of urinary calculi
CPT/HCPCS: 52005; C1758; C1769; J0131; J1956; J2405; J3010; Q9967